=== PATIENT | male | born 2000 | race Caucasian/White ===

== ENCOUNTER 2020-05-24 16:00 | Emergency (ER) | payer SELFPAY ==
[2020-05-24] MEDS ORDERED: cefTRIAXone\\ROCEPHIN 500 MG VIAL ONE (16:29)
[2020-05-24] MEDS ORDERED: Azithromycin 250 MG TAB ONE (16:29)
[2020-05-24] MEDS ORDERED: Lidocaine 1% PF 5 ML VIAL ONE (16:42)
[2020-05-24] MEDS ORDERED: Azithromycin 250 MG TAB PO SCH (16:45)
== END 2020-05-24 16:48 | disposition home or self-care (01) ==
LOC: BURERS 16:00
DX: A64 Unspecified sexually transmitted disease (principal); F17.210 Nicotine dependence, cigarettes, uncomplicated
CPT/HCPCS: 96372; 99283; J0696